=== PATIENT | male | born 1970 | race African-American/Black ===

== ENCOUNTER 2023-09-23 05:18 | Emergency (ER) | payer OTHER ==
[~2023-09-23] VITALS: Ht 180.3 cm; Wt 93.1 kg
[2023-09-23] MEDS ORDERED: LIDO5PAD8 EX (07:26)
[2023-09-23] MEDS ORDERED: CYCL-839 PO (07:26)
[2023-09-23] MEDS ORDERED: IBUP1TAB5 PO (07:26)
[2023-09-23] MEDS: KETOROLAC TROMETH 60MG/2ML VIAL IM ONE (07:27)
[2023-09-23] MEDS: CYCLOBENZAPRINE HCL 10 MG TAB PO ONE (07:27)
[2023-09-23 07:33] VITALS: BP 135/95; PULSE 93; RESP 18; TEMP 97.7; O2SAT 95
== END 2023-09-23 07:39 | disposition home or self-care (01) ==
LOC: ER 05:18
DX: S46.911A Strain of unspecified muscle, fascia and tendon at shoulder and upper arm level, right arm, initial encounter (principal); Z79.1 Long term (current) use of non-steroidal anti-inflammatories (NSAID); Z79.899 Other long term (current) drug therapy; X50.1XXA Overexertion from prolonged static or awkward postures, initial encounter; Y93.89 Activity, other specified; Y92.89 Other specified places as the place of occurrence of the external cause; Y99.8 Other external cause status
CPT/HCPCS: 96372; 99283; J1885